=== PATIENT | female | born 1950 | race Caucasian/White ===

== ENCOUNTER → 2017-10-07 | Outpatient (CLI) | payer BC, MEDICARE ==
[2017-10-07 10:40] LABS: Cholesterol 166 mg/dL (<200); HDL Cholesterol 81 mg/dL (40-60); LDL Cholesterol,Calculated 68 mg/dL (0-99); Triglycerides 86 mg/dL (<150)
== END | disposition home or self-care (01) ==
LOC: LABWHC1 10:11
PROVIDERS: ATTEND Internal Medicine Endocrinology, Diabetes & Metabolism
DX: E10.65 Type 1 diabetes mellitus with hyperglycemia (principal)
CPT/HCPCS: 36415; 80061; 83519; 84681

== ENCOUNTER → 2017-10-27 | Outpatient (CLI) | payer BC, MEDICARE ==
--- NOTE | 2017-11-01 09:56 | P.ARTDOP ---
Arterial Doppler LOWER EXTREMITY ARTERIAL DOPPLER: DATE OF SERVICE: 11-12 Reason for study: Suspect PAD. Doppler waveforms: Multiphasic bilaterally throughout Pulse volume recording ; normal configuration Pressure gradients: none Ankle-brachial indices: Greater than 1 Bilaterally Toe pressures: 71 on the right, 139 on the left Impression: Normal study.
== END | disposition home or self-care (01) ==
LOC: RADUSWWP 12:03
PROVIDERS: ATTEND Family Medicine
DX: I73.9 Peripheral vascular disease, unspecified (principal)
CPT/HCPCS: 93923